=== PATIENT | male | born 1980 | race Two or more races ===

== ENCOUNTER 2023-03-27 17:37 | Emergency (ER) | payer MEDICAID ==
[~2023-03-27] VITALS: Ht 152.4 cm; Wt 68.2 kg
[2023-03-27 17:56] VITALS: TEMP 98.5
[2023-03-27] MEDS ORDERED: IBUPROFEN 600 MG TABLET PO ONE (19:15)
[2023-03-27] MEDS ORDERED: ACETAMINOPHEN/CODEINE 300-30 MG TABLET PO ONE (19:15)
[2023-03-27] MEDS ORDERED: IBUP-1554 PO (20:48)
[2023-03-27] MEDS ORDERED: ACET-2080 PO (20:48)
[2023-03-27 20:55] VITALS: BP 143/78; PULSE 76; RESP 18
== END 2023-03-27 21:17 | disposition home or self-care (01) ==
LOC: EMS 17:37
DX: S22.31XA Fracture of one rib, right side, initial encounter for closed fracture (principal); S27.0XXA Traumatic pneumothorax, initial encounter; S00.93XA Contusion of unspecified part of head, initial encounter; F17.210 Nicotine dependence, cigarettes, uncomplicated; V09.9XXA Pedestrian injured in unspecified transport accident, initial encounter; Y93.01 Activity, walking, marching and hiking; Y92.89 Other specified places as the place of occurrence of the external cause; Y99.8 Other external cause status
CPT/HCPCS: 70450; 71101; 99284

== ENCOUNTER 2023-03-29 12:19 | Emergency (ER) | payer MEDICAID ==
[~2023-03-29] VITALS: Ht 157.5 cm; Wt 70.0 kg
[~2023-03-29 12:19] MED LIST: ACET-2080 PO; IBUP-1554 PO
[2023-03-29 12:24] VITALS: TEMP 98.4
[2023-03-29] MEDS ORDERED: ACETAMINOPHEN/CODEINE 300-30 MG TABLET PO ONE (14:30)
[2023-03-29 15:30] VITALS: BP 145/92; PULSE 75; RESP 16
== END 2023-03-29 15:57 | disposition home or self-care (01) ==
LOC: EMS 12:22
DX: S22.31XA Fracture of one rib, right side, initial encounter for closed fracture (principal); J93.9 Pneumothorax, unspecified; F17.210 Nicotine dependence, cigarettes, uncomplicated; V09.9XXA Pedestrian injured in unspecified transport accident, initial encounter; Y93.89 Activity, other specified; Y92.89 Other specified places as the place of occurrence of the external cause; Y99.8 Other external cause status
CPT/HCPCS: 71045; 99283